=== PATIENT | female | born 1975 | race Caucasian/White ===

== ENCOUNTER 2016-11-24 12:37 | Emergency (ER) | payer OTHER ==
[~2016-11-24] VITALS: Ht 149.9 cm; Wt 64.0 kg
--- NOTE | 2016-11-24 13:24 | NUR ---
MSE COMPLETED, REDNESS AROUND THE ABSCESS HAS BEEN MARKED. PT THEN D/C'D HOME, ACI/RX X1 GIVEN. PT AMBULATED W/O DIFF/TOOK ALL BELONGINGS.
[2016-11-24 13:27] VITALS: BP 155/92
== END 2016-11-24 13:28 | disposition home or self-care (01) ==
LOC: ER 12:53
DX: L02.415 Cutaneous abscess of right lower limb (principal)
CPT/HCPCS: 99283; A4663